=== PATIENT | female | born 1995 | race African-American/Black ===

== ENCOUNTER 2019-01-05 16:09 | Emergency (ER) | payer BC, MEDICAID ==
[~2019-01-05] VITALS: Ht 170.2 cm; Wt 72.7 kg
[2019-01-05 16:10] VITALS: BP 153/96
== END 2019-01-05 19:50 | disposition home or self-care (01) ==
LOC: EMS 16:10
DX: S61.412A Laceration without foreign body of left hand, initial encounter (principal); R03.0 Elevated blood-pressure reading, without diagnosis of hypertension; W23.0XXA Caught, crushed, jammed, or pinched between moving objects, initial encounter; Y93.89 Activity, other specified; Y92.89 Other specified places as the place of occurrence of the external cause; Y99.8 Other external cause status
CPT/HCPCS: 12001